=== PATIENT | female | born 1945 | race Caucasian/White ===

== ENCOUNTER 2023-03-04 17:11 | Inpatient (IN) | payer MEDICARE, OTHER ==
[~2023-03-04] VITALS: Ht 154.9 cm; Wt 98.0 kg
[2023-03-04] MEDS ORDERED: VANCOMYCIN 1 GM in IV D5W 250 ML IV ONE (18:00)
[2023-03-04 18:02] LABS: BASOPHILS # (AUTO) 0.1 K/uL (0.0-0.2); BASOPHILS % (AUTO) 1.4 % (0.0-2.0); EOSINOPHILS # (AUTO) 0.2 K/uL (0.0-0.7); EOSINOPHILS % (AUTO) 3.2 % (0.0-6.0); HEMATOCRIT 37 % (33-45); HEMOGLOBIN 12.2 g/dL (11.5-14.8); LYMPHOCYTES # (AUTO) 2.1 K/uL (0.8-4.8); LYMPHOCYTES % (AUTO) 31.6 % (20.0-44.0); MEAN CORPUSCULAR HEMOGLOBIN 28 PG (26.0-33.0); MEAN CORPUSCULAR HGB CONC 33 g/dl (31.0-36.0); MEAN CORPUSCULAR VOLUME 85 fL (82-100); MONOCYTES # (AUTO) 0.5 K/uL (0.1-1.30); MONOCYTES % (AUTO) 7.2 % (2.0-12.0); NEUTROPHILS # (AUTO) 3.8 K/uL (1.8-8.9); NEUTROPHILS % (AUTO) 56.6 % (43.0-81.0); PLATELET COUNT (AUTO) 276 K/uL (150-450); RED BLOOD CELL COUNT(AUTO) 4.38 MIL/uL (4.0-5.2); RED CELL DISTRIBUTION WIDTH 14.6 % (11.5-15.0); WHITE BLOOD COUNT (AUTO) 6.8 K/uL (4.3-11.0)
[2023-03-04] MEDS ORDERED: HYDR25TA4 PO (18:06)
[2023-03-04] MEDS ORDERED: OMEP20CA15 PO (18:06)
[2023-03-04] MEDS ORDERED: BENA40TA8 PO (18:11)
[2023-03-04] MEDS ORDERED: ATOR40TA PO (18:11)
[2023-03-04] MEDS ORDERED: ASPI-1169 PO (18:11)
[2023-03-04] MEDS ORDERED: CLOP75TA15 PO (18:11)
[2023-03-04] MEDS ORDERED: METO25TA20 PO (18:11)
[2023-03-04 18:18] LABS: CALCIUM, SERUM 9.4 mg/dL (8.5-10.1); CREATININE 0.6 mg/dL (0.6-1.3); POTASSIUM 4.1 mmol/L (3.5-5.1)
[2023-03-04 18:33] LABS: ALBUMIN 3.3 g/dL (3.4-5.0); BILIRUBIN,DIRECT 0.1 mg/dL (0.0-0.2); BILIRUBIN,TOTAL 0.3 mg/dL (0.2-1.0)
[2023-03-04 18:40] LABS: LACTIC ACID 0.8 mmol/L (0.4-2.0)
[2023-03-04 21:05] VITALS: BP 137/83; TEMP 97.5; O2SAT 95
[2023-03-04 21:10] VITALS: BP 137/83; TEMP 97.5; O2SAT 95
[2023-03-04] MEDS ORDERED: MAG HYDROX/AL HYDROX/SIMETH 30 ML UDC PO PRN (22:00)
[2023-03-04] MEDS ORDERED: MAGNESIUM HYDROXIDE 30 ML UDC PO PRN (22:00)
[2023-03-04] MEDS ORDERED: ZOLPIDEM TARTRATE 5 MG TABLET PO PRN (22:00)
[2023-03-04] MEDS ORDERED: HYDROCODONE/APAP 5/325MG TABLET PO PRN (22:00)
[2023-03-04] MEDS ORDERED: ONDANSETRON HCL/PF 4 MG/2 ML VIAL IVP PRN (22:00)
[2023-03-04] MEDS ORDERED: MORPHINE SULFATE INJ 2 MG/ML DISP.SYRIN IV PRN (22:00)
[2023-03-04] MEDS: ENOXAPARIN SODIUM 40 MG/0.4 ML DISP.SYRIN SQ SCH (22:00)
[2023-03-04] MEDS ORDERED: ACETAMINOPHEN 325 MG TABLET PO PRN (22:00)
[2023-03-05] MEDS ORDERED: VANCOMYCIN 1 GM /D5W 250 ML PB IV ONE (05:44)
[2023-03-05] MEDS ORDERED: VANCOMYCIN 1 GM in IV D5W 250ml IV ONE (06:00)
[2023-03-05 07:22] LABS: BASOPHILS % (AUTO) 0.5 % (0.0-2.0); EOSINOPHILS # (AUTO) 0.2 K/uL (0.0-0.7); EOSINOPHILS % (AUTO) 2.9 % (0.0-6.0); HEMATOCRIT 33 % (33-45); HEMOGLOBIN 11.1 g/dL (11.5-14.8); LYMPHOCYTES # (AUTO) 1.6 K/uL (0.8-4.8); LYMPHOCYTES % (AUTO) 27.2 % (20.0-44.0); MEAN CORPUSCULAR HEMOGLOBIN 28 PG (26.0-33.0); MEAN CORPUSCULAR HGB CONC 33 g/dl (31.0-36.0); MEAN CORPUSCULAR VOLUME 84 fL (82-100); MONOCYTES # (AUTO) 0.4 K/uL (0.1-1.30); MONOCYTES % (AUTO) 7.2 % (2.0-12.0); NEUTROPHILS # (AUTO) 3.6 K/uL (1.8-8.9); NEUTROPHILS % (AUTO) 62.2 % (43.0-81.0); PLATELET COUNT (AUTO) 264 K/uL (150-450); RED BLOOD CELL COUNT(AUTO) 3.98 MIL/uL (4.0-5.2); RED CELL DISTRIBUTION WIDTH 14.4 % (11.5-15.0); WHITE BLOOD COUNT (AUTO) 5.7 K/uL (4.3-11.0)
[2023-03-05 07:46] LABS: CALCIUM, SERUM 8.8 mg/dL (8.5-10.1); CARBON DIOXIDE 28 mmol/L (21-32); CHLORIDE 102 mmol/L (98-107); CREATININE 0.7 mg/dL (0.6-1.3); GLUCOSE 94 mg/dL (74-106); MAGNESIUM 1.9 mg/dL (1.8-2.4); POTASSIUM 3.9 mmol/L (3.5-5.1); SODIUM SERUM 136 mmol/L (136-145); UREA NITROGEN, BLOOD 18 mg/dL (7-18)
[2023-03-05 07:50] LABS: CHOLESTEROL 153 mg/dL (<200); HDL CHOLESTEROL 38 mg/dL (40-60); LDL 92 mg/dL (0-99); THYROID STIMULATING HORMONE 2.843 uIU/mL (0.358-3.74); TRIGLYCERIDES 110 mg/dL (30-150)
[2023-03-05] MEDS ORDERED: VANCOMYCIN 500 MG in IV D5W 100 ML IV ONE (08:00)
[2023-03-05] MEDS: PANTOPRAZOLE 40 MG VIAL IV SCH (08:14)
[2023-03-05 08:38] VITALS: BP 116/60; TEMP 98.6; O2SAT 94
[2023-03-05] MEDS ORDERED: FUROSEMIDE 40 MG/4 ML VIAL IV SCH (09:00)
[2023-03-05] MEDS ORDERED: OMEPRAZOLE 20 MG CAPSULE.DR PO SCH (10:30)
[2023-03-05] MEDS: METOPROLOL TARTRATE 25 MG TABLET PO SCH ×2 (10:30→21:33)
[2023-03-05] MEDS: HYDROCHLOROTHIAZIDE 25 MG TABLET PO SCH (11:00)
[2023-03-05 11:21] LABS: IRON, SERUM 68 ug/dl (50-175); TOTAL IRON BINDING CAPACITY 376 ug/dl (250-450)
[2023-03-05] MEDS: CLOPIDOGREL BISULFATE 75 MG TABLET PO SCH (11:31)
[2023-03-05] MEDS: ASPIRIN 81 MG TAB.CHEW PO SCH (11:31)
[2023-03-05 12:59] LABS: FERRITIN 14 ng/mL (8-388)
[2023-03-05 16:17] VITALS: BP 120/70; TEMP 99.1; O2SAT 97
[2023-03-05] MEDS: ATORVASTATIN 40 MG TABLET PO SCH (17:04)
[2023-03-05 20:00] VITALS: BP 140/63; TEMP 97.5; O2SAT 96
[2023-03-05] MEDS: ENOXAPARIN SODIUM 40 MG/0.4 ML DISP.SYRIN SQ SCH (21:34)
[2023-03-05 22:50] LABS: APPEARANCE,URINE CLEAR (CLEAR); BILIRUBIN,URINE NEGATIVE (NEGATIVE); BLOOD, URINE NEGATIVE Ery/uL (NEGATIVE); COLOR,URINE YELLOW (YELLOW); KETONES,URINE NEGATIVE (NEGATIVE); LEUKOCYTE ESTERASE ,URINE NEGATIVE (NEGATIVE); NITRITE, URINE NEGATIVE (NEGATIVE); PH,URINE 6.5 (5.0-8.0); PROTEIN,URINE NEGATIVE (NEGATIVE); UGLUCOSE NEGATIVE (NEGATIVE); UROBILINOGEN,URINE 0.2 EU/dL (0.2)
[2023-03-05 22:51] LABS: CREATININE, URINE 35.1 MG/DL (30.0-125.0)
[2023-03-05 22:57] LABS: URINE TOTAL PROTEIN 3.5 mg/dL (0-11.9)
[2023-03-05 23:30] LABS: EOSINOPHIL,URINE None Seen
[2023-03-06 07:14] LABS: CALCIUM, SERUM 8.8 mg/dL (8.5-10.1); CARBON DIOXIDE 25 mmol/L (21-32); CHLORIDE 102 mmol/L (98-107); CREATININE 0.6 mg/dL (0.6-1.3); GLUCOSE 121 mg/dL (74-106); POTASSIUM 3.9 mmol/L (3.5-5.1); SODIUM SERUM 136 mmol/L (136-145); UREA NITROGEN, BLOOD 18 mg/dL (7-18)
[2023-03-06] MEDS ORDERED: VANCOMYCIN 1 GM in IV D5W 250 ML IV SCH (08:00)
[2023-03-06] MEDS: PANTOPRAZOLE 40 MG VIAL IV SCH (08:04)
[2023-03-06] MEDS: ASPIRIN 81 MG TAB.CHEW PO SCH (08:05)
[2023-03-06] MEDS: METOPROLOL TARTRATE 25 MG TABLET PO SCH (08:05)
[2023-03-06] MEDS: CLOPIDOGREL BISULFATE 75 MG TABLET PO SCH (08:06)
[2023-03-06] MEDS: HYDROCHLOROTHIAZIDE 25 MG TABLET PO SCH (08:06)
[2023-03-06] MEDS ORDERED: BENAZEPRIL HCL 20 MG TABLET PO SCH (09:00)
[2023-03-06 09:39] VITALS: BP 130/67; TEMP 98.1; O2SAT 95
[2023-03-06 16:19] VITALS: BP 121/60; TEMP 99; O2SAT 95
[2023-03-06] MEDS ORDERED: DOXY-326 PO (16:44)
[2023-03-06] MEDS: ATORVASTATIN 40 MG TABLET PO SCH (17:47)
[2023-03-07] MEDS ORDERED: PANTOPRAZOLE 40 MG/PACK PACK PO SCH (09:00)
== END 2023-03-06 18:56 | disposition home or self-care (01) | DRG 603 ==
LOC: ER 17:21 → MED 20:39
PROVIDERS: ADMIT Nurse Practitioner Acute Care; ATTEND Nurse Practitioner Family
DX: L03.115 Cellulitis of right lower limb (principal); N17.9 Acute kidney failure, unspecified; E87.1 Hypo-osmolality and hyponatremia; Z68.42 Body mass index [BMI] 45.0-49.9, adult; E66.01 Morbid (severe) obesity due to excess calories; E78.5 Hyperlipidemia, unspecified; Z98.890 Other specified postprocedural states; Z79.02 Long term (current) use of antithrombotics/antiplatelets; Z79.82 Long term (current) use of aspirin; Z79.899 Other long term (current) drug therapy; D64.9 Anemia, unspecified; K29.70 Gastritis, unspecified, without bleeding; I10 Essential (primary) hypertension; L60.0 Ingrowing nail; L84 Corns and callosities; T46.4X5A Adverse effect of angiotensin-converting-enzyme inhibitors, initial encounter; Y92.9 Unspecified place or not applicable; E86.9 Volume depletion, unspecified; L85.9 Epidermal thickening, unspecified
CPT/HCPCS: 36415; 71045-TC; 80048-TC; 80061-TC; 80076-TC; 82570-TC; 82728-TC; 83540-TC; 83605-TC; 83735-TC; 83880; 84100-TC; 84300-TC; 84443-TC; 85025-TC; 87040-TC; 93307-TC; 93971-TC; A4223; C9113; G0378; J1650; J3370; J7050; J7060

== ENCOUNTER 2024-10-24 13:03 | Inpatient (IN) | payer MEDICARE, OTHER ==
[~2024-10-24] VITALS: Ht 157.5 cm; Wt 95.3 kg
[~2024-10-24 13:03] MED LIST: ASPI-1169 PO; ATOR40TA PO; BENA40TA8 PO; CLOP75TA15 PO; DOXY-326 PO; HYDR25TA4 PO; METO25TA20 PO; OMEP20CA15 PO
[2024-10-24 13:48] LABS: PLATELET COUNT (AUTO) 230 K/uL (150-450); RED BLOOD CELL COUNT(AUTO) 4.99 MIL/uL (4.0-5.2); RED CELL DISTRIBUTION WIDTH 14.9 % (11.5-15.0); WHITE BLOOD COUNT (AUTO) 12.9 K/uL (4.3-11.0)
[2024-10-24 13:55] LABS: CALCIUM, SERUM 9.2 mg/dL (8.5-10.1); CREATININE 0.7 mg/dL (0.6-1.3); SODIUM SERUM 144.0 mmol/L (136-145); UREA NITROGEN, BLOOD 22.0 mg/dL (7-18)
[2024-10-24 14:03] LABS: ASPARTATE AMINOTRANSFERASE 32.0 U/L (15-37); TOTAL PROTEIN, SERUM 7.8 g/dL (6.4-8.2)
[2024-10-24] MEDS ORDERED: CT SWABBABLE VALVE TRANS SET 1 EA INFUS.SET MC ONE (14:16)
[2024-10-24] MEDS ORDERED: IV NS 0.9% 250 ML IV ONE (14:16)
[2024-10-24] MEDS ORDERED: IOHEXOL-350 100 ML VIAL IV ONE (14:16)
[2024-10-24] MEDS ORDERED: ONDANSETRON HCL/PF 4 MG/2 ML VIAL ONE (14:35)
[2024-10-24] MEDS ORDERED: MECLIZINE HCL 25 MG TABLET ONE (14:35)
[2024-10-24] MEDS: IV NS 0.9% 1,000 ML BAG IV ONE (14:41)
[2024-10-24] MEDS: MECLIZINE HCL 25 MG TABLET PO ONE (14:42)
[2024-10-24] MEDS: ONDANSETRON HCL/PF - ER 4 MG/2 ML VIAL IV ONE (14:42)
[2024-10-24 16:48] LABS: APPEARANCE,URINE CLEAR (CLEAR); BLOOD, URINE NEGATIVE Ery/uL (NEGATIVE); LEUKOCYTE ESTERASE ,URINE NEGATIVE (NEGATIVE); NITRITE, URINE NEGATIVE (NEGATIVE); UGLUCOSE 3+ mg/dL (NEGATIVE)
[2024-10-24 17:29] LABS: ADD URINE CULTURE NO
[2024-10-24 17:52] VITALS: O2SAT 98
[2024-10-24] MEDS ORDERED: Z GUARD REMEDY 4 OZ OINT TP PRN (19:30)
[2024-10-24] MEDS ORDERED: ONDANSETRON HCL/PF 4 MG/2 ML VIAL IVP PRN (19:30)
[2024-10-24] MEDS ORDERED: DIAZEPAM 2 MG TABLET PO PRN (19:30)
[2024-10-24] MEDS: ENOXAPARIN SODIUM 40 MG/0.4 ML DISP.SYRIN SQ SCH (19:57)
[2024-10-24 20:00] VITALS: BP 125/77; TEMP 97.2; O2SAT 95
[2024-10-24] MEDS: MECLIZINE HCL 25 MG TABLET PO SCH (21:07)
[2024-10-24] MEDS: ATORVASTATIN 40 MG TABLET PO SCH (21:07)
[2024-10-24] MEDS: IV NS 0.9% 1,000 ML IV PRN (21:09)
[2024-10-25] VITALS: BP 125/66; TEMP 98.2; O2SAT 95
[2024-10-25 04:00] VITALS: BP 131/59; TEMP 97.7; O2SAT 96
[2024-10-25 06:45] LABS: PLATELET COUNT (AUTO) 222 K/uL (150-450); RED BLOOD CELL COUNT(AUTO) 4.47 MIL/uL (4.0-5.2); RED CELL DISTRIBUTION WIDTH 14.6 % (11.5-15.0); WHITE BLOOD COUNT (AUTO) 6.3 K/uL (4.3-11.0)
[2024-10-25 06:56] LABS: CALCIUM, SERUM 8.7 mg/dL (8.5-10.1); CREATININE 0.8 mg/dL (0.6-1.3); PHOSPHORUS 4.3 mg/dL (2.5-4.9); SODIUM SERUM 143.0 mmol/L (136-145); UREA NITROGEN, BLOOD 18.0 mg/dL (7-18)
[2024-10-25 07:49] LABS: LDL 64.0 mg/dL (0-99)
[2024-10-25 08:00] VITALS: BP 114/60; TEMP 98.6; O2SAT 98
[2024-10-25] MEDS: ACETAMINOPHEN 325 MG TABLET PO PRN (08:38)
[2024-10-25] MEDS: ASPIRIN EC 81 MG TABLET.DR PO SCH (08:39)
[2024-10-25] MEDS: METOPROLOL TARTRATE 25 MG TABLET PO SCH (08:39)
[2024-10-25] MEDS: BENAZEPRIL HCL 20 MG TABLET PO SCH (08:39)
[2024-10-25] MEDS: POTASSIUM CHLORIDE 20 MEQ TAB.PRT.SR PO SCH (10:44)
[2024-10-25] MEDS ORDERED: DEXTROSE 50%-WATER 50 ML DISP.SYRIN IV PRN (12:30)
[2024-10-25 16:00] VITALS: BP 110/60; TEMP 99.3; O2SAT 96
[2024-10-25] MEDS: INSULIN REGULAR, HUMAN 100 UNIT/ML 3 ML VIAL SQ PRN (16:38)
[2024-10-25] MEDS: BLOOD SUGAR DIAGNOSTIC 1 EACH STRIP IN SCH (16:38)
[2024-10-25 20:00] VITALS: BP 100/61; TEMP 98.4; O2SAT 98
[2024-10-26 06:57] LABS: PLATELET COUNT (AUTO) 219 K/uL (150-450); RED BLOOD CELL COUNT(AUTO) 4.47 MIL/uL (4.0-5.2); RED CELL DISTRIBUTION WIDTH 14.9 % (11.5-15.0); WHITE BLOOD COUNT (AUTO) 6.8 K/uL (4.3-11.0)
[2024-10-26 08:00] VITALS: BP 127/69; TEMP 97.7; O2SAT 94
[2024-10-26 08:09] LABS: CALCIUM, SERUM 8.3 mg/dL (8.5-10.1); CREATININE 0.8 mg/dL (0.6-1.3); SODIUM SERUM 142.0 mmol/L (136-145); UREA NITROGEN, BLOOD 19.0 mg/dL (7-18)
[2024-10-26 15:48] VITALS: BP 115/64; TEMP 99; O2SAT 94
[2024-10-26 20:00] VITALS: BP 121/59; TEMP 97.3; O2SAT 97
[2024-10-27 08:00] VITALS: BP 126/58; TEMP 98.1; O2SAT 95
[2024-10-27 08:51] VITALS: BP 126/58
[2024-10-27] MEDS ORDERED: ATOR20TA PO (09:59)
[2024-10-27] MEDS ORDERED: ASPI-1420 PO (09:59)
[2024-10-27] MEDS: CLOPIDOGREL BISULFATE 75 MG TABLET PO SCH (12:27)
[2024-10-27] MEDS: CLOTRIMAZOLE 1% 15 GM TUBE TP SCH (12:27)
[2024-10-27] MEDS ORDERED: ATORVASTATIN 40 MG TABLET PO SCH (22:00)
== END 2024-10-27 15:14 | DRG 66 ==
LOC: ER 13:07 → TELE 17:50 → MED 10-25 10:40
PROVIDERS: ADMIT Nurse Practitioner Acute Care; ATTEND Nurse Practitioner Family
DX: I63.81 Other cerebral infarction due to occlusion or stenosis of small artery (principal); E86.0 Dehydration; E66.9 Obesity, unspecified; D72.829 Elevated white blood cell count, unspecified; K29.70 Gastritis, unspecified, without bleeding; E78.5 Hyperlipidemia, unspecified; I10 Essential (primary) hypertension; R53.1 Weakness; R29.700 NIHSS score 0; F43.89 Other reactions to severe stress; H81.13 Benign paroxysmal vertigo, bilateral; S30.820A Blister (nonthermal) of lower back and pelvis, initial encounter; X58.XXXA Exposure to other specified factors, initial encounter; Y93.9 Activity, unspecified; Y92.009 Unspecified place in unspecified non-institutional (private) residence as the place of occurrence of the external cause; L98.8 Other specified disorders of the skin and subcutaneous tissue; Z68.38 Body mass index [BMI] 38.0-38.9, adult
CPT/HCPCS: 36415; 70450-TC; 70496-TC; 70498-TC; 70551-TC; 80048-TC; 80061-TC; 80076-TC; 81001; 82962-TC; 83690-TC; 83735-TC; 84100-TC; 84484-TC; 85025-TC; 92526; 92611; 93307-TC; 97110-TC; 97112-TC; 97116-TC; 97530-TC; 97535-TC; A4223; G0378; J1650; J1815; J2405; J7030; J7050; J8597; Q9967